=== PATIENT | male | born 1955 ===

== ENCOUNTER 2017-04-04 16:21 | Emergency (ER) | payer OTHER ==
[2017-04-04 16:22] VITALS: BMI 25.2
[2017-04-04 17:01] VITALS: BP 119/77; PULSE 74; RESP 18; TEMP 98.1; O2SAT 99
[2017-04-04] MEDS ORDERED: Sodium Chloride 0.9% 250 ML IV STA (17:19)
[2017-04-04 17:42] LABS: BASO % 0.8 % (0.0-2.0); EOS # 0.2 K/uL (0.0-0.7); HEMOGLOBIN 12.8 g/dL (12.0-18.0); LYMPH # 1.6 K/uL (1.0-4.3); MEAN CELL VOLUME 88.4 fl (80.0-94.0); MEAN CORPUSCULAR HEMOGLOBIN 31.1 pg (27.0-31.0); MEAN CORPUSCULAR HGB CONC 35.2 g/dL (33.0-37.0); MEAN PLATELET VOLUME 9.3 fl (7.2-11.7); MONO # 0.4 K/uL (0.0-0.8); MONO % 7.2 % (0.0-10.0); NEUT # 3.8 K/uL (1.8-7.0); NRBC % 0.1 % (0.0-0.0); RBC 4.12 Mil/uL (4.40-5.90); RED CELL DISTRIBUTION WIDTH 12.5 % (11.5-14.5)
--- NOTE | 2017-04-04 17:52 | RAD ---
HISTORY: Chest pain. COMPARISON: 08/22/2016. TECHNIQUE: Chest PA and lateral FINDINGS: LUNGS: No active pulmonary disease. PLEURA: No significant pleural effusion identified. No pneumothorax apparent. CARDIOVASCULAR: No radiographic findings to suggest acute or significant cardiovascular disease. OSSEOUS STRUCTURES: No significant abnormalities. VISUALIZED UPPER ABDOMEN: Normal. OTHER FINDINGS: None. IMPRESSION: No active disease. No significant interval change compared to the prior examination(s).
[2017-04-04 17:56] LABS: VENOUS BLOOD GAS PCO2 66 mmHg (40-60); VENOUS BLOOD GAS PO2 14 mm/Hg (30-55)
[2017-04-04 18:07] LABS: PARTIAL THROMBOPLASTIN TIME 30.4 Seconds (25.6-37.1); PROTHROMBIN TIME 10.8 Seconds (9.8-13.1)
[2017-04-04 18:17] LABS: B-TYPE NATRIURETIC PEPTIDE 65.7 pg/ml (0-900)
[2017-04-04] MEDS ORDERED: Insulin Regular 100 units/ml SC STA (18:21)
[2017-04-04] MEDS ORDERED: Sodium Chloride 0.9% 750 ML IV STA (18:22)
[2017-04-04] MEDS ORDERED: Insulin Regular 100 units/ml IVP STA (18:22)
[2017-04-04 18:23] LABS: ALBUMIN 3.5 g/dL (3.5-5.0); ALT/SGPT 77 U/L (21-72); AST/SGOT 38 U/L (17-59); BLOOD UREA NITROGEN 26 mg/dl (9-20); CALCIUM 9.2 mg/dL (8.4-10.2); GFR AFRICAN-AMERICAN > 60; GFR NON-AFRICAN AMERICAN > 60; MAGNESIUM 1.9 MG/DL (1.6-2.3)
[2017-04-04] MEDS ORDERED: Insulin Regular 100 units/ml ONE (18:38)
--- NOTE | 2017-04-04 19:06 | ED PDOC ---
Hyperglycemia/Hypoglycemia Time Seen by Provider: 04/04/17 17:04 Chief Complaint (Nursing): High Blood Sugar Chief Complaint (Provider): Hyperglycemia History Per: Patient History/Exam Limitations: no limitations Onset/Duration Of Symptoms: Days : The patient does not have any of the infectious symptoms listed except for those marked. Additional History Per: Patient Additional Complaint(s): 61yo male, with history of hypertension, diabetes, CAD, hypercholesterolemia, presents to ED with complaints of hyperglycemia. Patient states he had blood work done day before yesterday and told to come to ER immediately today due to elevated blood pressure. Patient states for the past 2 weeks he has been having polydypsia, polyuria and light headed. He also states for the past 3 days, he has had nonproductive cough but denies any associated fever or rhinorrhea. Patient states over the last month, he has started smoking cigarettes again. He also reports a heaviness in his chest which he feels is chest congestion. He has no other complaints. PCP: Kailee Robins Past Medical History Reviewed: Historical Data, Nursing Documentation, Vital Signs Vital Signs: Last Vital Signs Temp 98.1 F 04/04/17 16:59 Pulse 74 04/04/17 16:59 Resp 18 04/04/17 16:59 BP 119/77 04/04/17 16:59 Pulse Ox 99 04/04/17 16:59 - Medical History PMH: Arthritis, CAD, Diabetes, HIV (undetectable), HTN, Hypercholesterolemia Denies: Chronic Kidney Disease - Surgical History Surgical History: Coronary Stent (cardiac cath with stent placement) Denies: Pacemaker - Family History Family History: States: Diabetes, Hypertension - Social History Current smoker - smoking cessation education provided: Yes - Immunization History Hx Tetanus Toxoid Vaccination: Yes Hx Influenza Vaccination: Yes Hx Pneumococcal Vaccination: Yes - Home Medications Home Medications: Ambulatory Orders Medication Instructions Recorded Gabapentin [Neurontin] 400 mg PO BID 05/10/16 Simvastatin 20 mg PO HS #30 tablet 08/11/16 Insulin Lispro Mix 75/25 [HumaLOG 21 units SC BID 01/28/17 Mix 75/25] Clopidogrel [Plavix] 75 mg PO Q24H #30 tab 02/03/17 Losartan [Cozaar] 100 mg PO DAILY #30 tab 02/03/17 Metoprolol Succinate [Toprol XL] 25 mg PO DAILY #30 tab 02/03/17 amLODIPine [Norvasc] 10 mg PO DAILY #30 tab 02/03/17 metFORMIN [glucOPHAGE] 500 mg PO BID #0 02/03/17 - Allergies Allergies/Adverse Reactions: Allergies Allergy/AdvReac Type Severity Reaction Status Date / Time No Known Allergies Allergy Verified 01/28/17 17:55 Review of Systems ROS Statement: Except As Marked, All Systems Reviewed And Found Negative (as per HPI) Constitutional: Negative for: Fever ENT: Negative for: Nose Discharge Cardiovascular: Positive for: Light Headedness Respiratory: Positive for: Cough Genitourinary Male: Positive for: Frequency Physical Exam - Reviewed Nursing Documentation Reviewed: Yes Vital Signs Reviewed: Yes - Laboratory Results Result Diagrams: 04/04/17 17:36 04/04/17 17:36 - ECG O2 Sat by Pulse Oximetry: 99 (RA) Pulse Ox Interpretation: Normal Medical Decision Making Medical Decision Making: Impression: Hyperglycemia, URI symptoms Differential: Including but not limited to DKA, electrolyte abnormalities, dehydration, influenza, pneumonia, bronchitis Plan: -- Labs -- CXR -- IV Fluids -- Insulin 8 units -- Rapid flu Scribe Attestation: Documented by Shalini White acting as a scribe for Vivienne Gupta MD. Provider Scribe Attestation: All medical record entries made by the Scribe were at my direction and personally dictated by me. I have reviewed the chart and agree that the record accurately reflects my personal performance of the history, physical exam, medical decision making, and the department course for this patient. I have also personally directed, reviewed, and agree with the discharge instructions and disposition. Disposition - Clinical Impression Clinical Impression: Hyperglycemia Counseled Patient/Family Regarding: Studies Performed, Diagnosis - Disposition Referrals: [facility] [Outside] - 04/05/17 Disposition: Routine/Home Disposition Time: 20:10 Condition: IMPROVED Instructions: Diabetic Hyperglycemia (ED) Print Language: ENGLISH
--- NOTE | 2017-04-05 14:14 | CARD ---
APPROVED REPORT EKG Measurement Heart [id number] CT 170P46 [id number] <Conclusion> Normal sinus rhythm Nonspecific T wave abnormality Abnormal ECG artefact present
== END 2017-04-04 21:25 | disposition home or self-care (01) ==
LOC: H.ER 16:21
DX: E11.65 Type 2 diabetes mellitus with hyperglycemia (principal); E78.00 Pure hypercholesterolemia, unspecified; I10 Essential (primary) hypertension; J06.9 Acute upper respiratory infection, unspecified; Z79.4 Long term (current) use of insulin; Z95.5 Presence of coronary angioplasty implant and graft; I25.10 Atherosclerotic heart disease of native coronary artery without angina pectoris
CPT/HCPCS: 71046; 80053; 82803; 82948; 83735; 83880; 84100; 84484; 85025; 85610; 85730; 86850; 86900; 87804; 93005; 96361; 96374; 99283; J7040